=== PATIENT | male | born 1950 | race Caucasian/White ===

== ENCOUNTER → 2023-05-14 | Outpatient (CLI) | payer MEDICARE ==
--- NOTE | 2023-05-14 14:41 | CT ---
EXAMINATION TYPE: CT shoulder RT wo con CT DLP: 711 mGycm, Automated exposure control for dose reduction was used. DATE OF EXAM: 05/14/2023 2:34 PM COMPARISON: None CLINICAL INDICATION:Male, 72 years old with history of M89.311 HYPERTROPHY OF BONE, RIGHT, M25.511, M 19.011; PHH, Rt shoulder pain, hypertrophy of bone. TECHNIQUE: Axial images were obtained of the right shoulder without the use of IV contrast. Addition al coronal and sagittal reformatted images and soft tissue and bone window were obtained for review. 3-D reconstruction was created on a separate workstation. FINDINGS: There is no evidence of fracture, subluxation, or dislocation. Advanced degenerative change s of the right shoulder with flattening of the humeral head with subchondral cystic changes and edilia nal spurring. Osteophytosis demonstrated. Additional subchondral cystic changes and sclerosis involvi ng the glenoid. Small shoulder joint effusion identified. No significant soft tissue swelling. Couple of calcified loose bodies identified within the joint space posteriorly. Measuring up to 6 mm. Mild AC joint arthropathy with joint space narrowing and capsular hypertrophy. No focal muscular atrophy o r edema is identified. No radiopaque foreign body identified. Degenerative changes of the visualized cervical thoracic spine. Pulmonary fibrotic changes within the visualized right lung. IMPRESSION: 1. No acute fracture or dislocation. 2. Severe osteoarthritic changes of the right shoulder with flattening of the normal rounded humeral head and subchondral cystic changes with sclerosis involving the proximal humerus and glenoid. 3. Small right shoulder joint effusion with couple of calcified loose bodies measuring up to 6 mm. 4. Mild AC joint arthropathy. 5. Pulmonary fibrotic changes.
== END | disposition home or self-care (01) ==
LOC: RADCTMAIN 14:01
PROVIDERS: ATTEND Orthopaedic Surgery Hand Surgery
DX: M19.011 Primary osteoarthritis, right shoulder (principal); M89.311 Hypertrophy of bone, right shoulder; M25.411 Effusion, right shoulder; M25.811 Other specified joint disorders, right shoulder; M24.011 Loose body in right shoulder; J84.10 Pulmonary fibrosis, unspecified

== ENCOUNTER → 2023-06-27 | Outpatient (CLI) | payer MEDICARE ==
[2023-06-27 15:22] LABS: Partial Thromboplastin Time 23.2 sec (22.0-30.0); Prothrombin Time 10.6 sec (10.0-12.5)
[2023-06-27 22:09] LABS: HCT 46.9 % (39.6-50.0); HGB 15.2 d/dL (13.0-17.0); MCH 28.5 pg (27.0-32.0); MCHC 32.4 d/dL (32.0-37.0); Mean Platelet Volume 9.4 FL (9.5-12.2); NRBC Per 100 WBC 0 X 10*3/uL (0.00-0.01); Platelet Count 145 X 10*3/uL (140-440); RBC 5.33 X 10*6/uL (4.40-5.60); RDW 13.2 % (11.5-14.5); WBC 6.21 X 10*3/uL (4.50-10.00)
[2023-06-27 22:31] LABS: ALT 45 U/L (10-49); AST 38 U/L (14-35); Albumin 4.2 d/dL (3.8-4.9); Albumin/Globulin Ratio 1.91 Ratio (1.60-3.17); Alkaline Phosphatase 69 U/L (41-126); BUN/Creat Ratio 21.44 Ratio (12.00-20.00); Blood Urea Nitrogen 19.3 mg/dL (9.0-27.0); Calcium 9.7 mg/dL (8.7-10.3); Carbon Dioxide 26.3 mmol/L (21.6-31.8); Chloride 105 mmol/L (96-109); Globulin 2.2 d/dL (1.6-3.3); Glucose 91 mg/dL (70-110); Potassium 4.7 mmol/L (3.5-5.5); Sodium 140 mmol/L (135-145); Total Bilirubin 0.4 mg/dL (0.3-1.2); Total Protein 6.4 d/dL (6.2-8.2)
[2023-06-27 22:33] LABS: Appearance,Urine Clear (Clear); Bilirubin,Urine Negative (Negative); Blood,Urine Negative (Negative); Color,Urine Yellow (Yellow); Ketones,Urine Negative (Negative); Nitrite,Urine Negative (Negative); PH, Urine 6.5; Urobilinogen,Urine 0.2 E.U./DL
== END | disposition home or self-care (01) ==
LOC: LABPAT 13:24
PROVIDERS: ATTEND Orthopaedic Surgery Hand Surgery
DX: Z01.818 Encounter for other preprocedural examination (principal); M19.011 Primary osteoarthritis, right shoulder; I44.0 Atrioventricular block, first degree; R00.1 Bradycardia, unspecified; R94.31 Abnormal electrocardiogram [ECG] [EKG]
CPT/HCPCS: 80053; 81003; 85027; 85610; 85730; 87070; 93005

== ENCOUNTER 2023-07-28 10:36 | Day surgery (SDC) | payer MEDICARE ==
[2023-07-15 12:21] VITALS: BMI 31.1
[~2023-07-28 10:36] MED LIST: ACETAMINOPHEN TAB 500 MG TAB PO PRN; GABAPENTIN 300 MG CAP PO PRN; MELOXICAM 7.5 MG TAB PO PRN; MIDAZOLAM 2 MG/2 ML VIAL IV PRN; ONDANSETRON 4 MG/2 ML VIAL IVP PRN; TRANEXAMIC 1,000 MG/100ML-NACL 1,000 MG in SALINE 1 100ML.BAG IVPB PRN; fentaNYL (PF) 50 MCG/ML 2 ML AMP IV PRN
[2023-07-28] MEDS: LACTATED RINGERS 1,000 ML IV SCH (11:30)
[2023-07-28 11:37] LABS: Glucose,Whole Blood 96 mg/dL (70-110)
[2023-07-28] MEDS ORDERED: DEXAMETHASONE SOD PHOSPHATE 4 MG/ML 1 ML VIAL IVP ONE (11:45)
[2023-07-28] MEDS ORDERED: MIDAZOLAM 2 MG/2 ML VIAL IVP ONE (12:15)
--- NOTE | 2023-07-28 12:36 | P.ANPRN ---
Procedure Note - Anesthesia - Nerve Block Performed Right Interscalene Single Time Out Performed: Yes Date of Procedure: 07/28/23 Procedure Start Time: 12:15 Procedure Stop Time: :22 Location of Patient: PreOp Indication: Acute Post-Operative Pain, Requested by Surgeon Sedation Type: Sedate with meaningful contact maintained Preparation: Sterile Prep Position: Sitting Catheter: None Needle Types: Pajunk Needle Gauge: 21 Ultrasound used to visualize needle placement: Yes Ultrasound used to observe medication spread: Yes Injectate: 0.5% Ropivacaine (see comment for volume) (Ropi 10 ml+NS10ml) Blood Aspirated: No Pain Paresthesia on Injection Noted: No Resistance on Injection: Normal Image Stored and Saved: Yes Events: Other (see comment) (Nerve stimulation @ 0.5 MA)
[2023-07-28] MEDS ORDERED: SUCCINYLCHOLINE CHLORIDE 200 MG/10 ML VIAL IV ONE (12:50)
[2023-07-28] MEDS ORDERED: ROPIVACAINE 5 MG/ML 30 ML VIAL ONE (12:50)
[2023-07-28] MEDS ORDERED: TRANEXAMIC 1,000 MG/100ML-NACL PREMIX BAG ONE (12:50)
[2023-07-28] MEDS ORDERED: PHENYLEPHRINE-0.9% NACL SYG 1,000 MCG/10 ML SYRINGE ONE (12:50)
[2023-07-28] MEDS ORDERED: ePHEDrine 50 MG/ML 1 ML VIAL ONE (12:50)
[2023-07-28] MEDS ORDERED: MIDAZOLAM 2 MG/2 ML VIAL ONE (12:50)
[2023-07-28] MEDS ORDERED: WATER FOR INJECTION, STERILE 10 ML VIAL IV ONE (12:50)
[2023-07-28] MEDS ORDERED: PROPOFOL 10 MG/ML 20 ML VIAL IV ONE (12:50)
[2023-07-28] MEDS ORDERED: fentaNYL (PF) 50 MCG/ML 2 ML AMP ONE (12:50)
[2023-07-28] MEDS ORDERED: PHENYLEPHRINE 10 MG/ML VIAL ONE (12:50)
[2023-07-28] MEDS ORDERED: LIDOCAINE 1% INJ 10MG/ML (20 ML MDV) ONE (12:50)
[2023-07-28] MEDS ORDERED: ceFAZolin 1,000 MG in SODIUM CHLORIDE 0.9% 1,000 ML IRRIGATION ONE (12:55)
[2023-07-28] MEDS ORDERED: CLINDAMYCIN 900 MG in DEXTROSE 5% IN WATER 50 ML IVPB STA ×2 (13:37)
[2023-07-28] MEDS ORDERED: LACTATED RINGERS 1,000 ML IV ONE (13:40)
[2023-07-28] MEDS ORDERED: SENNOSIDES-DOCUSATE SODIUM 1 EACH TAB PO PRN (16:16)
[2023-07-28] MEDS ORDERED: HYDROmorphone 0.5 MG/0.5 ML SYRINGE IVP PRN ×3 (16:16)
[2023-07-28] MEDS ORDERED: ONDANSETRON 4 MG/2 ML VIAL IVP PRN (16:16)
--- NOTE | 2023-07-28 16:58 | XR ---
EXAMINATION TYPE: XR shoulder limited RT DATE OF EXAM: 07/28/2023 4:45 PM CLINICAL INDICATION:Male, 72 years old with history of post op RSA, assess alignment; [facility] COMPARISON: 05/14/2023 CT TECHNIQUE: XR shoulder limited RT; shoulder was examined in AP, internally rotated and scapular Y pr ojections. FINDINGS: Right shoulder arthroplasty with hardware intact. Subcutaneous gas and lucencies compatible with rece nt surgery. No evidence for fracture. Hardware appears intact. No evidence of acute osseous pathology , joint dislocation, or soft tissue swelling. The remaining portions of the visualized chest are unre markable. IMPRESSION: 1. No acute osseous pathology. 2. Post shoulder arthroplasty changes with hardware intact.
[2023-07-28] MEDS: oxyCODONE-APAP 5-325MG 1 EACH TAB PO PRN (19:35)
[2023-07-28] MEDS: CLINDAMYCIN 900 MG in DEXTROSE 5% IN WATER 50 ML IVPB SCH ×2 (20:59)
[2023-07-28] MEDS ORDERED: ATORVASTATIN 20 MG TAB PO SCH (22:30)
[2023-07-28] MEDS ORDERED: EZETIMIBE 10 MG TAB PO SCH (22:30)
[2023-07-28] MEDS: METOPROLOL TARTRATE 25 MG TAB PO SCH (22:38)
[2023-07-29] MEDS: oxyCODONE-APAP 5-325MG 1 EACH TAB PO PRN ×3 (00:30→10:41)
[2023-07-29] MEDS: CLINDAMYCIN 900 MG in DEXTROSE 5% IN WATER 50 ML IVPB SCH ×2 (04:10)
[2023-07-29 07:57] VITALS: BP 127/76; PULSE 71; RESP 18; TEMP 97.6
--- NOTE | 2023-07-29 08:12 | P.OP ---
Date of Procedure: 07/28/23 Preoperative Diagnosis: Right glenohumeral osteoarthritis Postoperative Diagnosis: same Procedure(s) Performed: Right reverse total shoulder arthroplasty Implants: Biomet Glenoid - mini baseplate with small augment, 40mm glenosphere neutral offset Humerus - size 14 stem, neutral poly Anesthesia: laura MARTIN Surgeon: Denisse Hutchinson Lending Advisor #1: Aydee Arriaza Estimated Blood Loss (ml): 200 Pathology: none sent Condition: stable Disposition: PACU Indications for Procedure: Pako has had long standing pain in the right shoulder. He has a history of AVN of the humeral head and has advanced glenohumeral OA. He has failed co nservative therapy. Description of Procedure: The patient, operative extremity, and procedure were identified in the preop holding area. After informed consent was obtained, he received a regional block and was brought back to the OR where she was placed under general and placed in the beach chair position. All bony and neurovascular structures were well padded. The upper extremity was then prepped and draped in normal sterile fashion. An oblique incision was then made from the corocoid towards the attachment of the deltoid. Dissection was carried down to the delto pectoral interval and the cephalic vein was identified and mobilized laterally. About 5mm of the pectoralis insertion was released. A oneal elevator was swept under the acromion to clear the subdeltoid space. The conjoined tendon was identified and the clavipectoral fascia was released to allow for placement of the sailaja retractor. The biceps tendon was located in the groove and released. A tenodesis was performed distal to the bicipital groove with an 0 vicryl. A subscapularis tenotomy was performed in an oblique fashion. The tendon was tagged with 0 vicryl. The humerus was externally rotated until the joint dislocated. The starting drill and serial reamers were inserted just posterior to the bicipital groove. The cutting jib was inserted and utilized to make the humeral head resection. This was followed by serial broaches with about 30 degrees of retroversion. A size 14 was found to be a good fit with rotational and axial stability. The protector plate was then impacted. The inferior osteophytes were carefully removed from the humeral neck with a rongeur. The capsule was teased away from the subscapularis tendon and removed with cautery. Attention was then turned to the glenoid. The biceps tendon was followed to the labrum which was removed using bovey cautery. The axillary nerve was palpated and protected. The edges of the glenoid were exposed. The aiming guide was used to insert the guide pin in the inferior third of the glenoid. The appropriate reamers were utilized to create the bleeding bone base for the glenoid. The central hole was drilled and the base plate was inserted. A nonlocking screw was inserted in the center with good fixation. The remaining locking screws were inserted. A standard 40mm glenosphere was selected and impacted into place. Attention was then turned to the humerus. The cup and standard poly trial was assembled. Reduction of the trial showed good tension and stability with minimal shuck and good range of motion. The trials were removed and the final implants were inserted. Pulse lavage with normal saline was used to irrigate the implants. The subscapularis was reduced without undue tension and decision was made to repair the tendon. A larks head knot was set to bring the two tendinous edges together. The wound was closed in a layered fashion with 0 vicryl, 3.0 vicryl, 4.0 monocryl, and skin glue. Wound was dressed with a provena dressing.
[2023-07-29] MEDS: LACTATED RINGERS 1,000 ML IV SCH (08:17)
[2023-07-29] MEDS: METOPROLOL TARTRATE 25 MG TAB PO SCH (08:21)
--- NOTE | 2023-07-29 09:38 | P.DS ---
Providers Expected date of discharge: 07/29/23 Attending physician: Denisse Hutchinson DO Primary care physician: Pancho Yee - Discharge Diagnosis(es) (1) Status post reverse arthroplasty of right shoulder Current Visit: Yes Status: Acute (2) Osteoarthritis of right shoulder Current Visit: Yes Status: Acute Hospital Course: This is a 72-year-old male who has history of severe degenerative arthritis and AVN of the right shoulder and presented to discuss surgical options. After discussion and consideration the patient elects to proceed with right reverse shoulder arthroplasty. The patient is seen preoperatively by their family physician and cleared for surgery. The patient is admitted to [facility] on 07/28/2023 for a right reverse shoulder arthroplasty. He is doing well postoperatively. Vital signs are stable. The patient is able to get up out of bed independently and is ambulating without assistance. Pain is well controlled. Patient is discharged to home on postoperative day #1 in good condition. Please see med rec for accurate list of home medications. Patient Condition at Discharge: Stable Plan - Discharge Summary Discharge Rx Participant: No New Discharge Prescriptions: New oxyCODONE-APAP 5-325MG [Percocet 5-325 mg] 1 each PO Q4-6H PRN #20 tab PRN Reason: Pain Continue Apixaban [Eliquis] 5 mg PO BID Multivitamins, Thera [Multivitamin (formulary)] 1 tab PO DAILY Ezetimibe [Zetia] 10 mg PO HS Metoprolol Tartrate 25 mg PO BID Ubidecarenone [Co Q-10] 100 mg PO DAILY Rosuvastatin [Crestor] 10 mg PO HS Aspirin [Adult Low Dose Aspirin EC] 81 mg PO HS Discharge Medication List Apixaban [Eliquis] 5 mg PO BID 07/15/23 [History] Ezetimibe [Zetia] 10 mg PO HS 07/15/23 [History] Metoprolol Tartrate 25 mg PO BID 07/15/23 [History] Multivitamins, Thera [Multivitamin (formulary)] 1 tab PO DAILY 07/15/23 [History] Rosuvastatin [Crestor] 10 mg PO HS 07/15/23 [History] Ubidecarenone [Co Q-10] 100 mg PO DAILY 07/15/23 [History] Aspirin [Adult Low Dose Aspirin EC] 81 mg PO HS 07/28/23 [History] oxyCODONE-APAP 5-325MG [Percocet 5-325 mg] 1 each PO Q4-6H PRN #20 tab 07/29/23 [Rx] Follow up Appointment(s)/Referral(s): Aydee Arriaza, NPC [Nurse Practitioner] - 08/15/23 9:45 am Patient Instructions/Handouts: *Surgery [facility] - Shoulder Arthroscopy Activity/Diet/Wound Care/Special Instructions: Keep Prevena wound vac in place until next Friday or when it shuts off on day 8. May shower with Prevena covered or uncovered when wound vac is removed. Ice to shoulder Keep arm in sling but may come out for elbow range of motion exercises. May take over the counter stool softeners as needed for constipation due to pain medication. Follow up in 2 weeks with Aydee. Call [facility] with any questions or concerns, Discharge Disposition: HOME SELF-CARE
== END 2023-07-29 12:58 | disposition home or self-care (01) ==
LOC: OR 10:36 → 4SSUR 16:11 → OR 07-29 12:58
PROVIDERS: ATTEND Orthopaedic Surgery Hand Surgery
DX: M19.011 Primary osteoarthritis, right shoulder (principal); I10 Essential (primary) hypertension; E78.5 Hyperlipidemia, unspecified; F10.90 Alcohol use, unspecified, uncomplicated; Z82.49 Family history of ischemic heart disease and other diseases of the circulatory system; Z83.3 Family history of diabetes mellitus; Z79.82 Long term (current) use of aspirin; Z79.899 Other long term (current) drug therapy
CPT/HCPCS: 94760; 73020; 23472; 64415; J2250; J1100; J0690 ×3; J2405; J1170; J0736 ×2

== ENCOUNTER 2024-04-20 06:13 | Inpatient (IN) | payer MEDICARE ==
[2024-04-20] MEDS ORDERED: METOPROLOL TARTRATE 25 MG TAB ONE (21:42)
[2024-04-20] MEDS ORDERED: HYDROcodone/APAP 5-325MG 1 EACH TAB ONE (21:43)
[2024-04-21] MEDS ORDERED: HYDROcodone/APAP 5-325MG 1 EACH TAB ONE ×2 (04:13→10:15)
[2024-04-21] MEDS ORDERED: METOPROLOL TARTRATE 25 MG TAB ONE (07:40)
--- NOTE | 2024-05-14 16:09 | XR ---
EXAMINATION TYPE: XR Hip Limited RT, FL guidance operating room DATE OF EXAM: 05/14/2024 Clinical History: RIGHT ANT HIP Findings: RIGHT TOTAL ANT HIP IN OR FL TIME 27.2 SECS DAP [id number]
== END 2024-04-21 13:44 | disposition home or self-care (01) | DRG 470 ==
LOC: OR 06:13 → DISRECOVER 06:43
PROVIDERS: ADMIT Orthopaedic Surgery; ATTEND Orthopaedic Surgery
PROC: 0SR906A Replacement of Right Hip Joint with Oxidized Zirconium on Polyethylene Synthetic Substitute, Uncemented, Open Approach (ICD-10-PCS; principal; 2024-04-20)
DX: M16.11 Unilateral primary osteoarthritis, right hip (principal); M87.851 Other osteonecrosis, right femur; I10 Essential (primary) hypertension; I48.91 Unspecified atrial fibrillation; E78.49 Other hyperlipidemia; Z79.899 Other long term (current) drug therapy; Z79.01 Long term (current) use of anticoagulants